=== PATIENT | male | born 1975 | race Caucasian/White ===

== ENCOUNTER 2018-06-15 16:40 | Emergency (ER) | payer SELFPAY ==
[~2018-06-15] VITALS: Ht 177.8 cm; Wt 89.8 kg
[2018-06-15] MEDS ORDERED: HYDROCODONE/APAP 10MG-325MG TAB PO ONE ×2 (17:00→18:30)
--- NOTE | 2018-06-15 17:29 | Diagnostic Imaging Report ---
Hand Complete CPT code: 68706 Indication:Impaction injury to middle of hand Technique: Three views of the left hand obtained Comparison: None. Findings: Distal radius and ulna appear intact. There is mild negative ulnar variance. Carpal bones appear generally well aligned. The digits are intact and normal in morphology. There is diffuse soft tissue swelling of the dorsum of the hand without radiopaque foreign body. IMPRESSION: No evidence for displaced fracture or current dislocation of the hand. Signed by: Dr. Manda Herzog MD on 06/15/2018 5:26 PM
[2018-06-15] MEDS ORDERED: TRAMADOL HCL 50 MG TAB PO ONE (18:00)
[2018-06-15 20:56] VITALS: BP 135/96
== END 2018-06-15 18:20 | disposition home or self-care (01) ==
LOC: ER 16:40
DX: S60.222A Contusion of left hand, initial encounter (principal); W22.8XXA Striking against or struck by other objects, initial encounter; Y92.008 Other place in unspecified non-institutional (private) residence as the place of occurrence of the external cause; I50.9 Heart failure, unspecified; I48.91 Unspecified atrial fibrillation
CPT/HCPCS: 99283